=== PATIENT | female | born 1980 | race American Indian/Alaskan Native ===

== ENCOUNTER 2016-08-13 14:22 | Emergency (ER) | payer BC, OTHER ==
[2016-08-13 14:27] VITALS: TEMP 97.4; BMI 23.3
--- NOTE | 2016-08-13 15:01 | PDOC ---
[id number] Timing/Duration: reports: resolved prior to arrival Quality: reports: severe Pain Radiation: reports: LUQ <Yinka Peter Last Filed: 08/13/16 15:54> <Chrissie Seth - Last Filed: 08/17/16 09:44> - General Chief Complaint: Pain, Acute Stated Complaint: ABD, PAIN, DIZZINESS Time Seen by Provider: 08/13/16 14:38 Past History - Past Medical History Other medical history: DENIES. - Psycho/Social/Smoking Cessation Hx Anxiety: No Suicidal Ideation: No Smoking History: Never smoked Hx Alcohol Use: No Drug/Substance Use Hx: No Substance Use Type: None <Yinka Peter Last Filed: 08/13/16 15:54> <Chrissie Seth - Last Filed: 08/17/16 09:44> - Past Medical History Allergies/Adverse Reactions: Allergies Allergy/AdvReac Type Severity Reaction Status Date / Time No Known Allergies Allergy Verified 08/13/16 14:25 Review of Systems - Review of Systems Constitutional: No: Chills, Fever Respiratory: No: Cough, Shortness of Breath Cardiac (ROS): No: Chest Pain ABD/GI: Yes: Nausea. No: Constipated, Diarrhea, Vomiting : No: Hematuria Musculoskeletal: No: Back Pain <Yinka Peter Last Filed: 08/13/16 15:54> *Physical Exam - Vital Signs Last Vital Signs Temp Pulse Resp BP Pulse Ox 97.4 F L 74 18 117/80 98 08/13/16 14:23 08/13/16 14:23 08/13/16 14:23 08/13/16 14:23 08/13/16 14:23 - Physical Exam General Appearance: Yes: Appropriately Dressed. No: Apparent Distress HEENT: positive: Normal Voice Neck: positive: Supple Respiratory/Chest: positive: Lungs Clear, Normal Breath Sounds. negative: Respiratory Distress Cardiovascular: positive: Regular Rate, S1, S2 Gastrointestinal/Abdominal: positive: Tender (minimal ttp to LUQ), Soft Musculoskeletal: positive: Normal Inspection. negative: CVA Tenderness Extremity: positive: Normal Inspection Integumentary: positive: Dry, Warm Neurologic: positive: Fully Oriented, Alert, Normal Mood/Affect <Amina PeterLoli - Last Filed: 08/13/16 15:54> - Vital Signs Last Vital Signs Temp Pulse Resp BP Pulse Ox 97.4 F L 70 18 124/68 99 08/13/16 14:23 08/13/16 16:05 08/13/16 16:05 08/13/16 16:05 08/13/16 16:05 <Chrissie Seth - Last Filed: 08/17/16 09:44> ED Treatment Course - LABORATORY CBC & Chemistry Diagram: 08/13/16 15:08 08/13/16 15:08 - RADIOLOGY Radiology Studies Ordered: Category Date Time Status CHEST X-RAY PORTABLE* [RAD] Stat Radiology 08/13/16 14:54 Ordered <Yinka Peter - Last Filed: 08/13/16 15:54> - LABORATORY CBC & Chemistry Diagram: 08/13/16 15:08 08/13/16 15:08 - ADDITIONAL ORDERS Additional order review: 08/13/16 15:08 RBC 4.89 MCV 82.9 MCHC 32.6 RDW 14.0 MPV 8.0 Neutrophils % 69.9 Lymphocytes % 18.4 Monocytes % 7.1 Eosinophils % 4.1 Basophils % 0.5 <Chrissie Seth - Last Filed: 08/17/16 09:44> Medical Decision Making - Medical Decision Making 08/13/16 14:55 08/13/16 15:14 35-year-old female, denies any past medical history, here with abdominal pain. Pt reports LUQ pain that started gradually while at work this am and then acutely worsened ~1 hr ago. States when pain was at it worse, she became sob and dizzy. States sxs have since improved. No CP, SOB, vomiting, change in BM, dysuria or hematuria. No h/o kidney or gallstones. No h/o similar episode. No obvious RFs for DVT/PE. See exam Upper abd pain w/ nausea and ?sob acutely today, since resolved Well allison and stable in ED w/ ?minimal ttp to LUQ Unclear etiology of symptoms at this time, unlikely ACS, PE (PERCs out), renal colic or biliary dze, possibly gas/gastritis -ekg/cxr/labs -reassess 08/13/16 15:55 W/u negative in ED as d/w ED attg. Pt remains stable and asx. Will discharge at this time with instructions to return for worsening of symptoms, otherwise follow-up with PMD as needed 08/13/16 15:59 <Yinka Peter - Last Filed: 08/13/16 15:54> *DC/Admit/Observation/Transfer <Yinka Peter - Last Filed: 08/13/16 15:54> - Attestations Physician Attestion: I reviewed the case with the mid-level practitioner and agree with the mid- level practitioner's assessment, diagnosis and disposition. <Chrissie Seth - Last Filed: 08/17/16 09:44> Diagnosis at time of Disposition: Upper abdominal pain - Discharge Dispostion Disposition: HOME Condition at time of disposition: Improved - Patient Instructions Printed Discharge Instructions: DI for Abdominal Pain-Adult Additional Instructions: The cause of your symptoms are unclear today as your labs were all normal. Please return for worsening of symptoms, otherwise follow with your PMD as needed
[2016-08-13 15:15] LABS: URINE APPEARANCE SLCLOUDY; URINE BILIRUBIN NEGATIVE (NEGATIVE); URINE BLOOD NEGATIVE (NEGATIVE); URINE COLOR YELLOW; URINE GLUCOSE (UA) NEGATIVE (NEGATIVE); URINE KETONE 1+ (NEGATIVE); URINE NITRITE NEGATIVE (NEGATIVE); URINE PROTEIN NEGATIVE (NEGATIVE); URINE UROBILINOGEN NEGATIVE E.U./dl (0.2-1.0)
[2016-08-13 15:16] LABS: URINE LEUK ESTERASE 1+ (NEGATIVE)
[2016-08-13 15:17] LABS: URINE BACTERIA RARE /hpf (NONE SEEN); URINE MUCUS MANY; URINE RBC 1 /hpf (0-3); URINE WBC 5 /hpf (3-5)
[2016-08-13 15:17] LABS: BASOPHIL 0.5 % (0-2.0); EOSINOPHIL 4.1 % (0-4.5); MCH 27.1 pg (25.7-33.7); MCHC 32.6 g/dl (32.0-36.0); MEAN CELL VOLUME 82.9 fl (80-96); NEUTROPHILS 69.9 % (42.8-82.8); PLATELET COUNT 296 K/MM3 (134-434); WHITE BLOOD COUNT 10.7 K/mm3 (4.0-10.0)
[2016-08-13 15:49] LABS: ALBUMIN 4.1 g/dl (3.4-5.0); ANION GAP 10 (8-16); BILIRUBIN,TOTAL 0.5 mg/dL (0.2-1.0); CALCIUM 9.1 mg/dL (8.5-10.1); CO2 27 mmol/L (21-32); CREATININE 0.6 mg/dL (0.55-1.02); GLUCOSE,RANDOM 92 mg/dL (74-106); SGOT/AST 19 U/L (15-37); SGPT/ALT 25 U/L (12-78); TOT PROT 8.1 g/dl (6.4-8.2)
[2016-08-13 15:52] LABS: ALK PHOS 98 U/L (45-117); TROPONIN I < 0.02 ng/ml (0.00-0.05)
[2016-08-13 16:06] VITALS: BP 124/68; PULSE 70
--- NOTE | 2016-08-18 13:50 | EKG ---
Test Reason : Blood Pressure : / mmHG Vent. Rate : 064 BPM Atrial Rate : 064 BPM P-R Int : 168 ms QRS Dur : 094 ms QT Int : 428 ms P-R-T Axes : 056 005 030 degrees QTc Int : 441 ms NORMAL SINUS RHYTHM T WAVE ABNORMALITY, CONSIDER ANTERIOR ISCHEMIA ABNORMAL ECG NO PREVIOUS ECGS AVAILABLE Confirmed by ZULEMA SIMEON MD ([id number]) on 08/18/2016 1:49:50 PM Referred By: Confirmed By:ZULEMA SIMEON MD
== END 2016-08-13 16:10 | disposition home or self-care (01) ==
LOC: JER 14:22
DX: R10.10 Upper abdominal pain, unspecified (principal)
CPT/HCPCS: 36415; 71010-TC; 80053; 81003; 81015; 82550; 84484; 84703; 85025; 93005; 93010; 99283-25